=== PATIENT | male | born 1990 | race American Indian/Alaskan Native ===

== ENCOUNTER 2023-05-01 20:32 | Emergency (ER) | payer SELFPAY ==
[~2023-05-01] VITALS: Ht 170.2 cm; Wt 77.3 kg
[2023-05-02] MEDS ORDERED: HOME MED LIST COMPLETE! XX SCH (00:05)
[2023-05-02 07:30] VITALS: BP 114/68; TEMP 97.7; O2SAT 98
== END 2023-05-02 07:35 | disposition home or self-care (01) ==
LOC: M ED 20:32
DX: F43.9 Reaction to severe stress, unspecified (principal)